=== PATIENT | male | born 1980 | race Caucasian/White ===

== ENCOUNTER 2025-05-20 16:59 | Emergency (ER) | payer OTHER | END 2025-05-20 17:38 | disposition home or self-care (01) | LOC: JP.ED 16:59 | DX: S80.851A Superficial foreign body, right lower leg, initial encounter (principal); Z87.891 Personal history of nicotine dependence; W45.8XXA Other foreign body or object entering through skin, initial encounter | CPT/HCPCS: 99283 ==